=== PATIENT | female | born 1975 | race Caucasian/White ===

== ENCOUNTER 2018-12-22 19:25 | Emergency (ER) | payer BC ==
[2018-12-22] MEDS ORDERED: Ondansetron 4 MG/2 ML SDV IVPUSH ONE (20:18)
[2018-12-22] MEDS ORDERED: Thiamine 100 MG in Sodium Chloride 0.9% 100 ML IV ONE (20:18)
[2018-12-22] MEDS ORDERED: Folic Acid 1 MG Tab PO ONE (20:18)
[2018-12-22] MEDS ORDERED: Lactated Ringers 1,000 ML IV ONE ×2 (20:18→21:13)
[2018-12-22] MEDS ORDERED: Sodium Chloride 0.9% 10 ML Syringe FLUSH PRN (20:20)
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
[2018-12-22] MEDS ORDERED: Potassium Chloride 20 MEQ Tab.ER PO ONE (21:14)
== END 2018-12-22 23:43 | disposition home or self-care (01) ==
LOC: JD.ED 19:25 → SUPCPDRO 19:25 → JD.ED 23:43
DX: F10.129 Alcohol abuse with intoxication, unspecified (principal); Y90.8 Blood alcohol level of 240 mg/100 ml or more
CPT/HCPCS: 36415; 80053; 80306; 81001; 81025; 84443; 85025; 96361; 96365; 96375; 99284; A9270; G0480; J2405; J3411; J7030; J7120; 99283

== ENCOUNTER 2019-05-23 12:01 | Emergency (ER) | payer BC ==
[2019-05-23] MEDS ORDERED: predniSONE 20 MG Tab PO ONE (12:56)
--- NOTE | 2019-05-23 13:02 | EDM.PDOC ---
ED HPI GENERAL MEDICAL PROBLEM - General Chief Complaint: Allergic Reaction Stated Complaint: ALLERGIC RX Time Seen by Provider: 05/23/19 12:13 Source of Information: Reports: Patient, RN Notes Reviewed - History of Present Illness INITIAL COMMENTS - FREE TEXT/NARRATIVE: 43-year-old female comes in with rash, sensation of swelling of her throat and difficulty breathing. She awakened with rash covering an area of her anterior neck yesterday morning. She did start taking Zyrtec but the rash is still there and continues to be quite itchy and bothersome. the fullness in her throat just started this morning. That is what brings her here to the ED. No other area of skin rash or itchiness. She has no idea what could have triggered this. She is using some facial products but does not believe she got any of that onto her neck. Also her shirt collar may have been rubbing that area of her neck but this has never happened before. 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 Denies: Dental Pain, Ear Pain, Sinus Problem, Throat Pain Respiratory: Denies: Shortness of Breath Cardiovascular: Denies: Chest Pain GI/Abdominal: Denies: Abdominal Pain, Nausea, Vomiting Musculoskeletal: Reports: No Symptoms Skin: Reports: Erythema (anterior neck) Neurological: Reports: No Symptoms ED EXAM GENERAL NO PERIP PULSE - Physical Exam Exam: See Below General Appearance: Alert Eye Exam: Bilateral Eye: PERRL Ears: Normal External Exam Nose: Normal Inspection Throat/Mouth: Normal Inspection, Normal Oropharynx, Other (no visible swelling) Head: No: Facial Swelling Neck: Supple. No: Lymphadenopathy (L), Lymphadenopathy (R) Respiratory/Chest: No Respiratory Distress, Lungs Clear, Normal Breath Sounds. No: Rhonchi, Wheezing Cardiovascular: Regular Rate, Rhythm Extremities: Normal Inspection, Normal Range of Motion Neurological: Alert, Oriented, No Motor/Sensory Deficits Skin Exam: Warm, Dry, Erythema (patches of erythema ant. neck, skin otherwise is clear) Course - Vital Signs Last Recorded V/S: Last Vital Signs Temp 97.4 F 05/23/19 12:10 Pulse 65 05/23/19 12:10 Resp 18 05/23/19 12:10 BP 128/82 05/23/19 12:10 Pulse Ox 100 05/23/19 12:10 - Orders/Labs/Meds Meds: Medications Discontinued Medications Generic Name Dose Route Start Last Admin Trade Name Brenda PRN Reason Stop Dose Admin Prednisone 40 mg 05/23/19 12:56 05/23/19 13:13 Prednisone PO 05/23/19 12:57 40 mg ONETIME ONE Administration Departure - Departure Time of Disposition: 13:04 Disposition: Home, Self-Care 01 Condition: Fair Clinical Impression: Allergic reaction, Skin rash - Discharge Information Prescriptions: Triamcinolone Acetonide [Kenalog 0.1% Crm] 15 gm .XX Q8HR #1 tube Instructions: Rash Referrals: Paty Lynne PA-C [Primary Care Provider] - Forms: ED Department Discharge Additional Instructions: Continue Zyrtec, take 1 tablet twice daily until after symptoms have completely resolved, prednisone 40 mg daily for the next 5 days. We have given your first dose here in the ED which will be here dosage for today.
== END 2019-05-23 13:37 | disposition home or self-care (01) ==
LOC: JD.ED 12:01
DX: T78.40XA Allergy, unspecified, initial encounter (principal)
CPT/HCPCS: 99283; A9270; 99282

== ENCOUNTER 2019-11-23 14:00 | Emergency (ER) | payer BC ==
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
[2019-11-23] MEDS ORDERED: LORazepam 2 MG/ML SDV IM ONE (14:44)
[2019-11-23] MEDS ORDERED: Lactated Ringers 1,000 ML IV ONE (14:48)
[2019-11-23] MEDS ORDERED: Cyanocobalamin (Vitamin B12) 1,000 MCG/ML SDV IM ONE ×2 (14:49→17:30)
[2019-11-23] MEDS ORDERED: Folic Acid 50 MG/10 ML MDV IV SCH (14:49)
[2019-11-23] MEDS ORDERED: LORazepam 2 MG/ML SDV IVPUSH ONE (15:07)
[2019-11-23 15:58] LABS: ACETAMINOPHEN 0 ug/mL (10-30)
[2019-11-23] MEDS ORDERED: diphenhydrAMINE 50 MG/ML SDV IVPUSH STA (21:50)
[2019-11-24] MEDS ORDERED: Ibuprofen 600 MG Tab PO ONE (00:46)
== END 2019-11-24 05:23 | disposition home or self-care (01) ==
LOC: JD.ED 14:00
DX: F10.129 Alcohol abuse with intoxication, unspecified (principal); Y90.0 Blood alcohol level of less than 20 mg/100 ml; R45.851 Suicidal ideations; F50.81 Binge eating disorder
CPT/HCPCS: 36415; 80053; 80306; 80307; 81001; 81025; 82977; 84439; 84443; 85025; 96361; 96372; 96374; 99284; A9270; J2060; J3420; J7120

== ENCOUNTER 2019-12-16 12:14 | Emergency (ER) | payer BC, SELFPAY ==
[2019-12-16] MEDS ORDERED: LORazepam 2 MG/ML SDV IVPUSH ONE (12:37)
[2019-12-16] MEDS ORDERED: Sodium Chloride 0.9% 10 ML Syringe FLUSH PRN (12:37)
[2019-12-16] MEDS ORDERED: Metoclopramide 10 MG/2 ML SDV IVPUSH ONE (12:38)
[2019-12-16] MEDS ORDERED: Sodium Chloride 0.9% 1,000 ML IV ONE (12:38)
[2019-12-16] MEDS ORDERED: LORazepam 2 MG/ML SDV ONE (12:39)
--- NOTE | 2019-12-16 12:45 | EDM.PDOC ---
ED HPI GENERAL MEDICAL PROBLEM - General Chief Complaint: Behavioral/Psych Stated Complaint: OD Time Seen by Provider: 12/16/19 12:26 Source of Information: Reports: Patient, RN Notes Reviewed, Other (Report from [facility] services) History Limitations: Reports: Intoxication (pt is somewhat hysterical and crying about not being able to have contact with her children/daughter) - History of Present Illness INITIAL COMMENTS - FREE TEXT/NARRATIVE: Patient is a 44-year-old female who presents to the ED for medical clearance to return to [facility]. The patient notes that she has been going through a divorce, and having quite a bit of social issues, states that her will not let her see her children/daughters, and that she drinks alcohol to cope with these problems. Patient relays that her father originally brought her to [facility] for her issues, but badly and sent her here for medical clearance to be admitted into the crisis center. Patient states that she has been drinking for several days, and her last drink was at 11 AM today. Patient states that it does not matter what sort of alcohol she drinks, she will drink what ever she can get her hands on, and states that she does drink fairly regularly. The patient's stated complaint at time of triage was overdose , but the patient denies taking any medication, and states that she is intoxicated. History reveals that the patient denies any sort of nausea/ vomiting/diarrhea, chest pain/shortness of breath, cough, fever/chills. - Related Data Allergies Allergy/AdvReac Type Severity Reaction Status Date / Time No Known Allergies Allergy Verified 12/16/19 12:28 Home Meds: Home Meds Triamcinolone Acetonide [Kenalog 0.1% Crm] 15 gm .XX Q8HR #1 tube 05/23/19 [Rx] Disulfiram 250 mg PO DAILY #5 tablet 12/16/19 [Rx] LORazepam [Ativan] 1 mg PO QID #18 tab 12/16/19 [Rx] Ondansetron [Zofran ODT] 4 mg PO Q8H #15 tab.dis 12/16/19 [Rx] Past Medical History HEENT History: Reports: Impaired Vision (wears glasses) Respiratory History: Reports: [employer] History: Reports: Psychiatric History: Reports: Addiction, Anxiety Endocrine/Metabolic History: Reports: Hypothyroidism Dermatologic History: Reports: Other (See Below) Other Dermatologic History: skin tags removed - Past Surgical History Female Surgical History: Reports: Section Social & Family History - Tobacco Use Smoking Status *Q: Never Smoker Second Hand Smoke Exposure: No - Caffeine Use Caffeine Use: Reports: None - Alcohol Use Alcohol Use History: Yes Days Per Week of Alcohol Use: 7 Number of Drinks Per Day: 10 Total Drinks Per Week: 70 Alcohol Use Frequency: Daily - Recreational Drug Use Recreational Drug Use: No ED ROS GENERAL - Review of Systems Review Of Systems: Comprehensive ROS is negative, except as noted in HPI. ED EXAM, GENERAL - Physical Exam Exam: See Below Exam Limited By: Intoxication (pt is somewhat hysterical and crying, otherwise follows commands and is somewhat consolable) General Appearance: Alert, WD/WN, No Apparent Distress, Anxious Eye Exam: Bilateral Eye: Normal Inspection Ears: Normal External Exam Throat/Mouth: Normal Inspection, Normal Lips, Normal Teeth, Normal Gums, Normal Oropharynx, Normal Voice, No Airway Compromise Head: Atraumatic, Normocephalic Neck: Normal Inspection Respiratory/Chest: No Respiratory Distress, Lungs Clear, Normal Breath Sounds, No Accessory Muscle Use, Chest Non-Tender Cardiovascular: Normal Peripheral Pulses, Regular Rate, Rhythm, No Murmur GI/Abdominal: Normal Bowel Sounds, Soft, Non-Tender, No Distention, No Mass Extremities: Normal Inspection, Normal Capillary Refill Neurological: Alert, Oriented, CN II-XII Intact (grossly), Normal Cognition, No Motor/Sensory Deficits Psychiatric: Anxious, Tearful Skin Exam: Warm, Dry, Intact, Normal Color, No Rash Course - Vital Signs Last Recorded V/S: Last Vital Signs Temp 97.0 F 12/16/19 12:24 Pulse 86 12/16/19 12:24 Resp 18 12/16/19 12:24 BP 120/80 12/16/19 12:24 Pulse Ox 97 12/16/19 12:24 - Orders/Labs/Meds Orders: Active Orders 24 hr Category Date Time Status Peripheral IV Care [RC] . DIRECTED Care 12/16/19 12:37 Ordered Lactated Ringers [Ringers, Lactated] 1,000 ml Med 12/16/19 15:45 Ordered IV ASDIRECTED Sodium Chloride 0.9% [Saline Flush] Med 12/16/19 12:37 Active 10 ml FLUSH ASDIRECTED PRN Peripheral IV Insertion Adult [OM.PC] Stat Oth 12/16/19 12:36 Ordered Medication Orders Lactated Ringer's (Ringers, Lactated) 1,000 mls @ 150 mls/hr IV ASDIRECTED ENMANUEL Last Admin: 12/16/19 16:17 Dose: 150 mls/hr Sodium Chloride (Saline Flush) 10 ml FLUSH ASDIRECTED PRN PRN Reason: Keep Vein Open Last Admin: 12/16/19 13:11 Dose: 10 ml Labs: Laboratory Tests 12/16/19 12/16/19 12/16/19 Range/Units 12:45 12:45 12:45 WBC 6.79 (3.98-10.04) K/mm3 RBC 4.42 (3.98-5.22) M/mm3 Hgb 13.6 (11.2-15.7) gm/dl Hct 40.4 (34.1-44.9) % MCV 91.4 (79.4-94.8) fl MCH 30.8 (25.6-32.2) pg MCHC 33.7 (32.2-35.5) g/dl RDW Std Deviation 42.4 (36.4-46.3) fL Plt Count 426 H (182-369) K/mm3 MPV 9.2 L (9.4-12.3) fl Neut % (Auto) 57.3 (34.0-71.1) % Lymph % (Auto) 38.4 (19.3-51.7) % [place] % (Auto) 2.9 L (4.7-12.5) % Eos % (Auto) 0.6 L (0.7-5.8) Baso % (Auto) 0.7 (0.1-1.2) % Neut # (Auto) 3.88 (1.56-6.13) K/mm3 Lymph # (Auto) 2.61 (1.18-3.74) K/mm3 [place] # (Auto) 0.20 L (0.24-0.36) K/mm3 Eos # (Auto) 0.04 (0.04-0.36) K/mm3 Baso # (Auto) 0.05 (0.01-0.08) K/mm3 Sodium 146 H (136-145) mEq/L Potassium 3.9 (3.5-5.1) mEq/L Chloride 106 (98-107) mEq/L Carbon Dioxide 26 (21-32) mEq/L Anion Gap 17.9 H (5-15) BUN 13 (7-18) mg/dL Creatinine 0.7 (0.55-1.02) mg/dL Est Cr Clr Drug Dosing 88.56 mL/min Estimated GFR (MDRD) > 60 (>60) mL/min BUN/Creatinine Ratio 18.6 H (14-18) Glucose 86 (74-106) mg/dL Calcium 8.4 L (8.5-10.1) mg/dL Total Bilirubin 0.2 (0.2-1.0) mg/dL AST 31 (15-37) U/L ALT 20 (14-59) U/L Alkaline Phosphatase 56 (46-116) U/L Total Protein 7.3 (6.4-8.2) g/dl Albumin 3.5 (3.4-5.0) g/dl Globulin 3.8 gm/dL Albumin/Globulin Ratio 0.9 L (1-2) TSH 3rd Generation 0.562 (0.358-3.74) uIU/mL Urine Opiates Screen (PNSPHJ=888) Ur Buprenorphine Scrn (CUTOFF=10) Ur Oxycodone Screen (ZRR7UE=699) Urine Methadone Screen (OAHINT=259) Ur Propoxyphene Screen (QUXNZH=235) Ur Barbiturates Screen (DXARKI=128) Ur Tricyclics Screen (BHPFFY=294) Ur Phencyclidine Scrn (CUTOFF=25) Ur Amphetamine Screen (FDHRVS=038) U Methamphetamines Scrn (QWURNK=535) U Benzodiazepines Scrn (QNDNOS=816) U Cocaine Metab Screen (PMYMPO=198) U Marijuana (THC) Screen (CUTOFF=50) Ethyl Alcohol 0.38 (0.00) gm% 12/16/19 12/16/19 Range/Units 16:22 16:40 WBC (3.98-10.04) K/mm3 RBC (3.98-5.22) M/mm3 Hgb (11.2-15.7) gm/dl Hct (34.1-44.9) % MCV (79.4-94.8) fl MCH (25.6-32.2) pg MCHC (32.2-35.5) g/dl RDW Std Deviation (36.4-46.3) fL Plt Count (182-369) K/mm3 MPV (9.4-12.3) fl Neut % (Auto) (34.0-71.1) % Lymph % (Auto) (19.3-51.7) % [place] % (Auto) (4.7-12.5) % Eos % (Auto) (0.7-5.8) Baso % (Auto) (0.1-1.2) % Neut # (Auto) (1.56-6.13) K/mm3 Lymph # (Auto) (1.18-3.74) K/mm3 [place] # (Auto) (0.24-0.36) K/mm3 Eos # (Auto) (0.04-0.36) K/mm3 Baso # (Auto) (0.01-0.08) K/mm3 Sodium (136-145) mEq/L Potassium (3.5-5.1) mEq/L Chloride (98-107) mEq/L Carbon Dioxide (21-32) mEq/L Anion Gap (5-15) BUN (7-18) mg/dL Creatinine (0.55-1.02) mg/dL Est Cr Clr Drug Dosing mL/min Estimated GFR (MDRD) (>60) mL/min BUN/Creatinine Ratio (14-18) Glucose (74-106) mg/dL Calcium (8.5-10.1) mg/dL Total Bilirubin (0.2-1.0) mg/dL AST (15-37) U/L ALT (14-59) U/L Alkaline Phosphatase (46-116) U/L Total Protein (6.4-8.2) g/dl Albumin (3.4-5.0) g/dl Globulin gm/dL Albumin/Globulin Ratio (1-2) TSH 3rd Generation (0.358-3.74) uIU/mL Urine Opiates Screen Negative (SQPIIN=103) Ur Buprenorphine Scrn Negative (CUTOFF=10) Ur Oxycodone Screen Negative (ZCV4DJ=568) Urine Methadone Screen Negative (BPDLJP=371) Ur Propoxyphene Screen Negative (UYGCXL=586) Ur Barbiturates Screen Negative (LRFXEK=321) Ur Tricyclics Screen Negative (ZFFYGV=164) Ur Phencyclidine Scrn Negative (CUTOFF=25) Ur Amphetamine Screen Negative (AUDLLA=333) U Methamphetamines Scrn Negative (VDRWFK=877) U Benzodiazepines Scrn Negative (XFZDHM=447) U Cocaine Metab Screen Negative (GPESWH=001) U Marijuana (THC) Screen Negative (CUTOFF=50) Ethyl Alcohol 0.26 (0.00) gm% Meds: Medications Generic Name Dose Route Start Last Admin Trade Name Freq PRN Reason Stop Dose Admin Lactated Ringer's 1,000 mls @ 150 mls/hr 12/16/19 15:45 12/16/19 16:17 Ringers, Lactated IV 150 mls/hr ASDIRECTED ENMANUEL Administration Sodium Chloride 10 ml 12/16/19 12:37 12/16/19 13:11 Saline Flush FLUSH 10 ml ASDIRECTED PRN Administration Keep Vein Open Discontinued Medications Generic Name Dose Route Start Last Admin Trade Name Freq PRN Reason Stop Dose Admin Sodium Chloride 1,000 mls @ 999 mls/hr 12/16/19 12:38 12/16/19 13:01 Normal Saline IV 12/16/19 13:38 999 mls/hr ONETIME ONE Administration Lactated Ringer's 1,000 mls @ 999 mls/hr 12/16/19 14:17 12/16/19 15:00 Ringers, Lactated IV 12/16/19 15:17 999 mls/hr .BOLUS ONE Administration Lorazepam 1 mg 12/16/19 12:37 12/16/19 12:50 Ativan IVPUSH 12/16/19 12:38 1 mg ONETIME ONE Administration Lorazepam Confirm 12/16/19 12:39 12/16/19 12:49 Ativan Administered 12/16/19 12:40 Not Given Dose 2 mg .ROUTE .STK-MED ONE Lorazepam 0.5 mg 12/16/19 16:20 12/16/19 17:10 Ativan PO 12/16/19 16:21 0.5 mg ONETIME ONE Administration Metoclopramide HCl 10 mg 12/16/19 12:38 12/16/19 13:07 Reglan IVPUSH 12/16/19 12:39 Not Given ONETIME ONE Ondansetron HCl 4 mg 12/16/19 17:12 12/16/19 17:16 Zofran IVPUSH 12/16/19 17:13 4 mg ONETIME ONE Administration - Re-Assessments/Exams Free Text/Narrative Re-Assessment/Exam: 12/16/19 12:46 Patient presents to the ED for medical clearance to be admitted into the crisis bed at [facility]. Patient is quite hysterical and crying at time of triage, we will give her IV fluids, some Ativan and Reglan for initial treatment, will obtain some basic labs for further evaluation. 12/16/19 14:18 Labs are back, urine drug screen is still pending. Blood alcohol level is 0.38. All other levels essentially normal, and warrant no further investigation or treatment. Patient will be given IV fluids to help sober her up, [facility] does like the blood alcohol level to be lower than 0.20 before they will accept her for management. She will need to stay here for a few hours to achieve this level. 12/16/19 14:37 Nursing staff was able to contact [facility] for nurse to nurse report, she states that the blood alcohol level will need to be under 0.3, depending on how the patient is responding. [facility] staff state that the patient had a unwitnessed fall in the bathroom, and was requesting a neuro exam for rule out. Patient is sleeping at this ER visit, she was hysterical when she got here, but the 1 mg Ativan did seem to help calm her nerves, there is no indication for a head CT at this time due to the patient's status. Again it was an unwitnessed fall reported by the patient, I do not see the need to do a head CT at today's visit other than the patient crying, she is neurologically appropriate and intact. 12/16/19 16:05 Patient was reassessed at bedside, she has gotten 2 L of fluid, a third Liter has been ordered at 150 mils per hour for maintenance. Patient states that she is still okay with going to the crisis center at [facility] for alcohol detox. Patient was wondering about Antabuse. This would be fine with me, and I will have her on an Ativan taper as she will likely need detox hard due to her admitted alcohol use. She will also be given Zofran for management. 12/16/19 17:22 The patient's repeat alcohol level is come back at 0.26, and balance has been contacted and he does accept the patient in transfer to their facility for further management. Departure - Departure Time of Disposition: 17:22 Disposition: DC/Tfer to Other 70 Condition: Good Clinical Impression: Alcohol abuse Alcohol intoxication Qualifiers: Complication of substance-induced condition: uncomplicated Qualified Code(s): F10.920 - Alcohol use, unspecified with intoxication, uncomplicated - Discharge Information *PRESCRIPTION DRUG MONITORING PROGRAM REVIEWED*: Yes *COPY OF PRESCRIPTION DRUG MONITORING REPORT IN PATIENT VIKTOR: No Prescriptions: Disulfiram 250 mg PO DAILY #5 tablet LORazepam [Ativan] 1 mg PO QID #18 tab Ondansetron [Zofran ODT] 4 mg PO Q8H #15 tab.dis Instructions: Alcohol Withdrawal Syndrome, [id number] Forms: ED Department Discharge Additional Instructions: You were evaluated in the ER today regarding your alcohol abuse. You were given some IV fluids, and are being discharged to the crisis bed at [facility]. You have been given a couple prescriptions, one for Antabuse; please take 1 tablet daily until gone. The Ativan is scheduled 4 times daily x2 days, then 3 times daily x2 days, then twice daily x2 days until gone. The Zofran is 1 tablet every 8 hours dissolvable under your tongue for nausea. Please return to the ER at any time if symptoms change or worsen. Sepsis Event Note - Evaluation Sepsis Screening Result: No Definite Risk - Focused Exam Vital Signs: Vital Signs Temp Pulse Resp BP Pulse Ox 12/16/19 12:24 97.0 F 86 18 120/80 97 Date Exam was Performed: 12/16/19 Time Exam was Performed: 17:22 - My Orders Last 24 Hours: My Active Orders 12/16/19 12:36 Peripheral IV Insertion Adult [OM.PC] Stat 12/16/19 12:37 Peripheral IV Care [RC] . DIRECTED Sodium Chloride 0.9% [Saline Flush] 10 ml FLUSH ASDIRECTED PRN 12/16/19 15:45 Lactated Ringers [Ringers, Lactated] 1,000 ml IV ASDIRECTED - Assessment/Plan Last 24 Hours: My Active Orders 12/16/19 12:36 Peripheral IV Insertion Adult [OM.PC] Stat 12/16/19 12:37 Peripheral IV Care [RC] . DIRECTED Sodium Chloride 0.9% [Saline Flush] 10 ml FLUSH ASDIRECTED PRN 12/16/19 15:45 Lactated Ringers [Ringers, Lactated] 1,000 ml IV ASDIRECTED
[2019-12-16] MEDS ORDERED: Lactated Ringers 1,000 ML IV ONE (14:17)
[2019-12-16] MEDS ORDERED: Lactated Ringers 1,000 ML IV SCH (15:45)
[2019-12-16] MEDS ORDERED: LORazepam 0.5 MG Tab PO ONE (16:20)
[2019-12-16] MEDS ORDERED: Ondansetron 4 MG/2 ML SDV IVPUSH ONE (17:12)
== END 2019-12-16 18:09 | disposition other institution (70) ==
LOC: JD.ED 12:14
DX: F10.120 Alcohol abuse with intoxication, uncomplicated (principal); F41.9 Anxiety disorder, unspecified; Y90.0 Blood alcohol level of less than 20 mg/100 ml; Z79.899 Other long term (current) drug therapy
CPT/HCPCS: 36415; 80053; 80306; 80307; 84443; 85025; 96374; 96375; 99284; A9270; J2060; J2405; J7030; J7120